=== PATIENT | female | born 1985 | race Caucasian/White ===

== ENCOUNTER 2019-06-13 16:55 | Outpatient (CLI) | payer OTHER | END 2019-06-13 18:40 | disposition home or self-care (01) | LOC: OBT 16:55 → L-D 16:56 → OBT 18:40 | DX: O36.8330 Maternal care for abnormalities of the fetal heart rate or rhythm, third trimester, not applicable or unspecified (principal); Z3A.33 33 weeks gestation of pregnancy | CPT/HCPCS: 76818 ==

== ENCOUNTER 2019-07-26 10:10 | Inpatient (IN) | payer OTHER ==
[2019-07-26] MEDS: LACTATED RINGER'S 1,000 ML IV (11:58)
[2019-07-26] MEDS ORDERED: LIDOCAINE 1% (MPF) 30 ML INJ INJ (12:00)
[2019-07-26] MEDS ORDERED: IBUPROFEN 600 MG TAB PO (12:00)
[2019-07-26] MEDS ORDERED: CARBOPROST 250 MCG INJ IM (12:00)
[2019-07-26] MEDS ORDERED: MISOPROSTOL 200 MCG TAB PR (12:00)
[2019-07-26] MEDS ORDERED: BUTORPHANOL 2 MG INJ IV (12:00)
[2019-07-26] MEDS ORDERED: OXYTOCIN 30 UNITS/LR 500 ML IV ×2 (12:00)
[2019-07-26] MEDS: MISOPROSTOL 50 MCG CAPSULE PO ×2 (16:30→22:48)
[2019-07-26] MEDS ORDERED: MISOPROSTOL 50 MCG CAPSULE PO (18:00)
[2019-07-27] MEDS: LACTATED RINGER'S 1,000 ML IV ×4 (03:14→15:42)
[2019-07-27] MEDS: MISOPROSTOL 50 MCG CAPSULE PO ×2 (04:32→09:37)
[2019-07-27] MEDS ORDERED: MISOPROSTOL 50 MCG CAPSULE PO (05:00)
[2019-07-27] MEDS: OXYTOCIN 30 UNITS/LR 500 ML IV ×3 (12:33→21:47)
[2019-07-27] MEDS ORDERED: ONDANSETRON 4 MG INJ IV (15:00)
[2019-07-27] MEDS ORDERED: DIPHENHYDRAMINE 50 MG INJ IV (15:00)
[2019-07-27] MEDS ORDERED: NALOXONE (0.4 MG/ML) INJ IV ×2 (15:00→17:00)
[2019-07-27] MEDS ORDERED: FENTAnyl 2MCG/ML-ROPIV 0.2% 100 ML BAG EPI ×2 (15:00→17:00)
[2019-07-27] MEDS: METHYLERGONOVINE 0.2 MG INJ IM (17:23)
[2019-07-27] MEDS: LACTATED RINGER'S 1,000 ML IV* (18:57)
[2019-07-27] MEDS ORDERED: ZOLPIDEM 5 MG TAB PO (19:00)
[2019-07-27] MEDS ORDERED: CARBOPROST 250 MCG INJ IM (19:00)
[2019-07-27] MEDS ORDERED: MISOPROSTOL 200 MCG TAB PR (19:00)
[2019-07-27] MEDS ORDERED: METHYLERGONOVINE 0.2 MG INJ IM (19:00)
[2019-07-27] MEDS ORDERED: WITCH HAZEL/GLYCERIN PAD PR (19:00)
[2019-07-27] MEDS ORDERED: DIBUCAINE 1% 30 GM OINT TOP (19:00)
[2019-07-27] MEDS ORDERED: HYDROCODONE/APAP (5/325) TAB PO ×2 (19:00)
[2019-07-27] MEDS: SENNA/DOCUSATE NA (8.6MG/50MG) TAB PO (20:23)
[2019-07-27] MEDS: MAGNESIUM HYDROXIDE 30ML CUP PO (20:23)
[2019-07-27] MEDS: LANOLIN HPA 1 PKT TOP (20:24)
[2019-07-27] MEDS: BENZOCAINE 20% 56 ML SPRAY TOP (20:24)
[2019-07-27] MEDS: KETOROLAC 30 MG INJ IV (20:30)
[2019-07-27] MEDS: ACETAMINOPHEN 500 MG TAB PO (20:31)
[2019-07-27] MEDS: ACCU-CHEK XX ×2 (21:36→22:53)
[2019-07-27] MEDS: MINERAL OIL LIGHT 10 ML VIAL TOP (22:53)
[2019-07-27] MEDS: IBUPROFEN 600 MG TAB PO (23:39)
[2019-07-27] MEDS: CEPHALEXIN 500 MG CAP PO (23:40)
[2019-07-28] MEDS: LACTATED RINGER'S 1,000 ML IV* ×3 (02:57→18:57)
[2019-07-28] MEDS: IBUPROFEN 600 MG TAB PO ×4 (05:47→23:59)
[2019-07-28] MEDS: CEPHALEXIN 500 MG CAP PO ×4 (05:47→23:58)
[2019-07-28] MEDS: ACCU-CHEK XX ×2 (07:30→10:05)
[2019-07-28] MEDS: SENNA/DOCUSATE NA (8.6MG/50MG) TAB PO ×2 (09:12→21:36)
[2019-07-28] MEDS: MAGNESIUM HYDROXIDE 30ML CUP PO ×2 (09:12→21:36)
[2019-07-29] MEDS: LACTATED RINGER'S 1,000 ML IV* (02:57)
[2019-07-29] MEDS: CEPHALEXIN 500 MG CAP PO ×2 (05:55→11:27)
[2019-07-29] MEDS: IBUPROFEN 600 MG TAB PO ×2 (05:55→11:27)
[2019-07-29] MEDS: SENNA/DOCUSATE NA (8.6MG/50MG) TAB PO (09:13)
[2019-07-29] MEDS: MAGNESIUM HYDROXIDE 30ML CUP PO (09:13)
[2019-07-29] MEDS: MEASLES,MUMPS,RUBELLA VACCINE INJ SC* (09:14)
[2019-07-29] MEDS: VARICELLA VACCINE LIVE/PF 1,350 UNIT/0.5 ML ML SC* (09:14)
[2019-07-29] MEDS: DIPHTH/TET/ACEL PERTUSS (ADULT) 0.5 ML VIAL IM* (09:14)
== END 2019-07-29 16:39 | disposition home or self-care (01) | DRG 807 ==
LOC: L-D 10:10 → PP1 07-27 18:30 → L-D 11:14
PROC: 10E0XZZ Delivery of Products of Conception, External Approach (ICD-10-PCS; principal; 2019-07-27)
DX: O48.0 Post-term pregnancy (principal); O69.81X0 Labor and delivery complicated by cord around neck, without compression, not applicable or unspecified; O24.429 Gestational diabetes mellitus in childbirth, unspecified control; Z37.0 Single live birth; Z3A.40 40 weeks gestation of pregnancy
CPT/HCPCS: 76815; 82947; 82962; 85025; 85610; 85730; 86592; 86850; 86900; 86901; 88307; 90716